=== PATIENT | female | born 1980 | race Caucasian/White ===

== ENCOUNTER 2016-12-30 20:16 | Emergency (ER) | payer OTHER ==
[~2016-12-30] VITALS: Ht 170.2 cm; Wt 68.0 kg
[2016-12-30 20:39] VITALS: BP 149/96
== END 2016-12-30 21:06 | disposition home or self-care (01) ==
LOC: ER 20:21
DX: S51.852A Open bite of left forearm, initial encounter (principal); I10 Essential (primary) hypertension; F17.200 Nicotine dependence, unspecified, uncomplicated; Z98.890 Other specified postprocedural states; W55.01XA Bitten by cat, initial encounter; Y93.89 Activity, other specified; Y92.89 Other specified places as the place of occurrence of the external cause; Y99.8 Other external cause status
CPT/HCPCS: 99283; A4606; Z7610

== ENCOUNTER 2017-03-17 02:31 | Emergency (ER) | payer OTHER ==
[~2017-03-17] VITALS: Ht 170.2 cm; Wt 74.8 kg
[2017-03-17 02:35] VITALS: BP 152/110
--- NOTE | 2017-03-17 02:44 | NUR ---
PT AMBULATED TO BED #4 WITH A STEADY GAIT.
== END 2017-03-17 03:24 | disposition home or self-care (01) ==
LOC: ER 02:31
DX: O26.892 Other specified pregnancy related conditions, second trimester (principal); M79.89 Other specified soft tissue disorders; I10 Essential (primary) hypertension; F17.210 Nicotine dependence, cigarettes, uncomplicated; Z3A.14 14 weeks gestation of pregnancy
CPT/HCPCS: 99281; A4606; Z7610; Z7502

== ENCOUNTER 2017-05-11 02:12 | Emergency (ER) | payer OTHER ==
[~2017-05-11] VITALS: Ht 170.2 cm; Wt 72.6 kg
[2017-05-11 02:48] VITALS: BP 151/98
--- NOTE | 2017-05-11 02:55 | NUR ---
STATES "I HAVE TO TAKE MY DAUGHTER HOME NOW; WILL COME BACK"
== END 2017-05-11 02:55 | disposition left against medical advice (07) ==
LOC: ER 02:14
DX: Z53.21 Procedure and treatment not carried out due to patient leaving prior to being seen by health care provider (principal); M79.641 Pain in right hand; M79.89 Other specified soft tissue disorders
CPT/HCPCS: A4606; Z7610